=== PATIENT | female | born 1945 | race Caucasian/White ===

== ENCOUNTER → 2016-06-20 | Outpatient (CLI) | payer MEDICARE, OTHER ==
[~2016-06-20] MED LIST: ADVAIR 250-501 EACH INH; ALLEGRA PO; CHANTIX1 MG PO; COMBIVENT MDI IH; COUMADIN6 MG PO; DIFLUCAN PO; DULOXETINE HCL60 MG PO; DUONEB 2.5-0.5 M3 ML NEB; EFFEXOR XR PO; LEVAQUIN PO; LOTREL 5/20 MG1 CAP PO; LYRICA100 MG PO; MOBIC15 MG PO; NORCO1 TAB 10/3 PO; PHENERGAN25 M1 PO; PRAVASTATIN SOD10 MG PO; PREDNISONE PO; PREVACID PO; PROAIR HFA8.5 GM INH; SYMMETREL PO; SYNTHROID PO; TAMIFLU75 MG PO; VICODIN PO; VITAMIN D250000 UNIT PO; WALGREENS; ZETIA PO; ZYRTEC10 M1 PO
--- NOTE | ~2016-06-20 | CO ---
Unit #: [id number] #: [id number] Patient: ARTURO PARIKH [id number] [address] [address] [id number] O MR#: [id number] NAME: ARTURO PARIKH ROOM: Age: 70 Sex: F Admission Date: 06/20/2016 : 1945 Attending Physician: Destin Jenkins M.D. Primary Care Physician: Americo Baez M.D. Consultation Date: 06/20/2016 CONSULTATION REPORT REASON FOR CONSULTATION Preoperative medical evaluation prior to left total knee arthroplasty scheduled by Dr. Jenkins 07/18/2016. HISTORY OF PRESENT ILLNESS The patient is a 70-year-old female, who presents to preprocedural screening for the reasons indicated above. The patient reports left knee pain, but denies other complaints at the time of this interview. She denies chest, upper back, arm, neck, jaw pain or pressure. She clarifies that she does have a history of cervical spine fusion and does have neck pain from that in that regard. She denies dyspnea on exertion, paroxysmal nocturnal dyspnea, orthopnea, lightheadedness, dizziness, presyncope, syncope, and palpitations. She denies history of myocardial infarction, congestive heart failure, CVA, or TIA. She has a history of tobacco use, but is in a smoking cessation program and is on Chantix at this time. She has been evaluated by Dr. Jenkins and scheduled for the above-referenced procedure. PAST MEDICAL HISTORY 1. Osteoarthritis. 2. Type 2 diabetes mellitus, diet controlled. 3. COPD. 4. Asthma. 5. Hypertension. 6. Stress incontinence. 7. Depression. 8. GERD. 9. Hypothyroidism. 10. Seasonal allergic rhinitis. 11. Hyperlipidemia. 12. Anemia as a child. 13. Degenerative disk disease, status post C-spine fusion and L-spine fusion, status post epidural steroid injections. There is history of tingling in both hands. 14. Restless legs syndrome. 15. History of tobacco use. PAST SURGICAL HISTORY 1. Hysterectomy. 2. Appendectomy. 3. Cholecystectomy. 4. Cervical spine fusion x2. 5. Lumbar fusion. 6. Left wrist surgery. Unit #: [id number] #: [id number] Patient: ARTURO PARIKH. Left knee arthroscopy. Please note, the patient denies a personal and family history of complications to anesthesia. ALLERGIES Tetracyclines, tetanus, and diphtheria toxoid. We will need to clarify reactions. CURRENT MEDICATIONS Lotrel 5/20 mg capsule one p.o. b.i.d., Synthroid 100 mcg p.o. daily, Mobic 15 mg p.o. daily, Zetia 10 mg p.o. daily, Chantix 1 mg p.o. daily, vitamin D2 of 50,000 units p.o. on Monday, pravastatin sodium 10 mg p.o. at bedtime, Advair Diskus 250/50 one puff inhaled b.i.d., Cymbalta 60 mg p.o. daily, ProAir HFA 2 puffs inhaled q.4 hours p.r.n. shortness of air. SOCIAL HISTORY Tobacco use, 3 cigarettes a day for 48 years. Rarely consumes EtOH and denies illicit drug use. FAMILY HISTORY Per review of Dr. Jenkins's office note and confirmation with the patient. Mother with hypertension, hyperlipidemia, coronary artery disease with myocardial infarction. Father with diabetes, hypertension, high cholesterol, and myocardial infarction. REVIEW OF SYSTEMS A 10-point review of systems is conducted and negative except as indicated under history of present illness above. PHYSICAL EXAMINATION GENERAL: A 70-year-old female, sitting in wheelchair. Awake, alert, oriented, in no acute distress. VITAL SIGNS: Temperature 97.5, heart rate 72, respiratory rate 20, blood pressure 120/68, oxygen saturation 100% on room air. HEENT: Atraumatic, normocephalic. Sclerae anicteric. No discharge from eyes, ears, or nares. LYMPH: No preauricular, postauricular, tonsillar, submental, anterior, posterior cervical adenopathy. ENDOCRINE: No thyromegaly, thyroid nodules, or tenderness. RESPIRATORY: Clear to auscultation in all munoz bilaterally without wheezes, rhonchi, or rales. CARDIOVASCULAR: S1, S2. Regular rate and rhythm without murmur or rub. GI: Bowel sounds are positive x4. Soft, nontender, nondistended. EXTREMITIES: No edema, cyanosis, or clubbing. MUSCULOSKELETAL: Strength 5/5 in all extremities bilaterally with flexion and extension without atrophy or tenderness. NEUROLOGIC: Cranial nerves II through XII grossly intact. Alert and oriented x3. Speech clear. Handgrasps are strong and equal bilaterally DIAGNOSTIC STUDIES LABORATORY RESULTS: Hemoglobin A1c 5.8. WBC 8.3, hemoglobin 13.2, hematocrit 39.7, platelet count 272,000. Sodium 139, potassium 3.5, chloride 102, CO2 of 31, glucose 69, BUN 14, creatinine 0.7, calcium 9.0, AST 14, ALT 8, alkaline phosphatase 122, bilirubin total 0.3, total protein 7.1, albumin 3.8. PT 10.0, INR 1.0. Urinalysis, negative with culture and sensitivity not indicated. MRSA nasal screen pending at this time. Unit #: [id number] #: [id number] Patient: ARTURO PARIKH IMAGING STUDIES: Two-view chest x-ray report pending at this time. CARDIOVASCULAR STUDIES: 12-lead EKG, normal sinus rhythm. Nonspecific ST and T-wave abnormality. Abnormal ECG. Confirmed report pending at this time. IMPRESSION The patient is a 70-year-old female, who presents to preprocedural screening for medical evaluation prior to left total knee arthroplasty. The patient's Herbert Revised Cardiac Risk Index is equal to 0.4%. This represents the patient's perioperative risk of cardiac , fatal myocardial infarction, cardiopulmonary arrest, arrhythmia, and/or pulmonary edema. This has been discussed in detail with the patient. She wishes to proceed with surgery as scheduled at this time. 1. Type 2 diabetes mellitus. Diet controlled. We will place on Accu-Cheks and low-dose sliding scale insulin protocol postoperatively along with CCD. 2. Chronic obstructive pulmonary disease. The patient does not use oxygen at home. We will order inhaled bronchodilators and titrate O2 to keep O2 sats greater than or equal to 92%. 3. Asthma, stable. 4. Hypertension. Continue current medications and adjust medications accordingly. 5. Stress incontinence. Monitor for urinary retention. 6. Depression, stable. 7. Gastroesophageal reflux disease. Continue proton pump inhibitor/H2 amber. 8. Hypothyroidism. TSH, free T4 within normal range at this time. Continue home dose of Synthroid. 9. Seasonal allergic rhinitis, controlled. Continue home medication. 10. Hyperlipidemia. 11. History of anemia. The patient's H and H are stable today. 12. Osteoarthritis. 13. Degenerative disk disease, status post cervical spine and lumbar spine fusions and epidural steroid injections, stable. 14. History of tingling in both hands. 15. Restless legs syndrome. 16. History of tobacco use. On smoking cessation program with Chantix. Thank you for allowing us to participate in care of this patient. We will gladly follow her for postop medical management pending order of Dr. Jenkins. Dictated by... Gladys Nguyen A.P.R.N. for Nael Bolanos/ewelina TD: 06/21/2016 07:11 JOB #: [id number] Unit #: [id number] #: [id number] Patient: ARTURO PARIKH CONSULTATION REPORT X Gladys Nguyen APRN X CONSULTATION REPORT
--- NOTE | ~2016-06-20 | CR63 ---
[facility] A Service of [facility] & [facility] RADIOLOGY TEXT RESULTS PATIENT: ARTURO PARIKH LOCATION: [facility] : [birth year] UNIT #: [id number] AGE: [address]: Destin Jenkins MD SEX: F ORDER DR: [id number] [facility] [address] [place], [place] [address] [id number] O MR#: [id number] Acc #: [id number] NAME: ARTURO PARIKH : 1945 SEX: F STUDY DATE/TIME: 06/20/2016 12:58 UNIT: [facility] ROOM: STUDY DESCRIPTION: CR Chest 2 View Attending Physician: Destin Jenkins M.D. Referring Physician: Destin Jenkins M.D. Ordering Physician: Destin Jenkins M.D. Primary Care Physician: Americo Baez M.D. MEDICAL IMAGING REPORT This report is preliminary unless electronic signature is present EXAM Chest x-ray, 06/20 at 12:58. INDICATION Preoperative exam for left knee surgery. Former smoker. History of COPD and hypertension. FINDINGS PA and lateral views of the chest are compared with 12/23/2013. Cardiac and mediastinal contours are normal. No pneumothorax is seen. There is some mild scarring or atelectasis at the left base. Lungs are otherwise clear. No pneumothorax. IMPRESSION Mild scarring or atelectasis at the left lung base, otherwise no active disease. Dictated by... Rigo Silva Jr., M.D. THIS IS AN ELECTRONICALLY VERIFIED REPORT Rigo Silva Jr., M.D. at 06/21/2016 9:58 PM KEVIN/shannon TD: 06/21/2016 10:03 JOB #: [id number] MEDICAL IMAGING REPORT COPY
--- NOTE | ~2016-06-20 | EKG ---
PATIENT: ARTURO PARIKH UNIT #: [id number] Ventricular Rate: 67 BPM Atrial Rate: 67 BPM P-R Interval: 136 ms QRS Duration: 88 ms Q-T Interval: 414 ms QTC Calculation(Bezet): 437 ms P Smallwood: 65 degrees Calculated R Smallwood: 64 degrees Calculated T Smallwood: 47 degrees Diagnosis Line: Normal sinus rhythm Diagnosis Line: Nonspecific ST and T wave abnormality Diagnosis Line: Abnormal ECG Diagnosis Line: When compared with ECG of 17-JAN-2009 13:26, Diagnosis Line: No significant change was found Diagnosis Line: Confirmed by KALEB RODRIGUEZ MD ([id number]) on Diagnosis Line: 06/21/2016 4:09:43 PM INTERPRETING MD: MICHAEL STEINBERG
[2016-06-20 12:00] LABS: HEMATOCRIT 39.7 % (35.0-45.0); HEMOGLOBIN 13.2 gm/dL (12.0-16.0); MEAN CELL VOLUME 86.6 FL (83-96); MEAN CORPUSCULAR HEMOGLOBIN 28.8 PG (28-34); MEAN CORPUSCULAR HGB CONC 33.3 g/dL (30-36); MEAN PLATELET VOLUME 7.9 FL (6.5-11.5); RED BLOOD COUNT 4.58 X10e (3.90-5.30); RED CELL DISTRIBUTION WIDTH 13.8 % (11.0-15.5); WHITE BLOOD COUNT 8.3 X10e3 (4.0-10.5)
[2016-06-20 12:15] LABS: URINE APPEARANCE CLEAR; URINE BILIRUBIN NEG (NEG); URINE BLOOD TRACE (NEG); URINE COLOR YELLOW; URINE GLUCOSE NEG (NEG); URINE KETONE NEG (NEG); URINE LEUKOCYTE ESTERASE NEG (NEG); URINE NITRATE NEG (NEG); URINE PROTEIN NEG (NEG); URINE SPECIFIC GRAVITY 1.012 (1.003-1.035); URINE UROBILINOGEN 0.2 MG/DL (NEG)
[2016-06-20 12:17] LABS: URBCS1 AUWI 0-2 /[HPF] (0-2); URINE BACTERIA AUWI NEG (NEGATIVE); URINE SQUAMOUS EPITHELIAL CELL NONE SEEN /[HPF]; UWBCS1 AUWI 0-2 (0-5)
[2016-06-20 12:22] LABS: CULTURE INDICATED? NO; URINE SOURCE CLEAN CATCH
[2016-06-20 12:49] LABS: ALBUMIN SERUM 3.8 g/dL (3.5-5.0); ALKALINE PHOSPHATASE 122 U/L (32-92); ALT (SGPT) 8 U/L (10-40); AST (SGOT) 14 U/L (10-42); BILIRUBIN,TOTAL 0.3 mg/dL (0.2-2.0); BLOOD UREA NITROGEN 14 mg/dL (9-23); CARBON DIOXIDE 31 mmol/L (22-31); CHLORIDE 102 mmol/L (100-111); CREATININE SERUM 0.7 mg/dL (0.6-1.4); GLOM FILT RATE Estimated ABOVE60 mL/min (>60); GLUCOSE FASTING 69 mg/dL (70-110); POTASSIUM 3.5 mmol/L (3.5-5.1); PROTEIN TOTAL SERUM 7.1 g/dL (6.0-8.3); SODIUM 139 mmol/L (135-145)
[2016-06-20 14:00] LABS: THYROID STIMULATING HORMONE 0.91 uIU/ml (0.34-5.60)
[2016-06-20 14:07] LABS: FREE THYROXIN (T4) 1.13 ng/dL (0.58-1.64)
== END | disposition home or self-care (01) ==
LOC: CAMB 11:13
PROVIDERS: Orthopaedic Surgery
DX: Z01.818 Encounter for other preprocedural examination (principal); M17.12 Unilateral primary osteoarthritis, left knee; R91.8 Other nonspecific abnormal finding of lung field
CPT/HCPCS: 36415; 71020; 80053; 81003; 83036; 84439; 84443; 85027; 85610; 86850; 86900; 86901; 87070; 93005

== ENCOUNTER 2016-07-04 07:11 | Inpatient (IN) | payer MEDICARE, OTHER ==
--- NOTE | ~2016-07-04 | OR ---
Unit #: [id number] #: [id number] Patient: ARTURO PARIKH [id number] [address] [place], [place] [address] [id number] I MR#: [id number] NAME: ARTURO PARIKH ROOM: 453 Date of Procedure: 07/04/2016 Admission Date: 07/04/2016 Surgeon: Destin Jenkins M.D. : 1945 Attending Physician: Destin Jenkins M.D. Referring Physician: Destin Jenkins M.D. Primary Care Physician: Americo Baez M.D. OPERATIVE REPORT PREOPERATIVE DIAGNOSIS Primary localized osteoarthritis of the left knee. POSTOPERATIVE DIAGNOSIS Primary localized osteoarthritis of the left knee. PROCEDURE PERFORMED Left total knee. ASSISTANTS Enrique and Stan. ANESTHESIA Adductor canal block plus general. ESTIMATED BLOOD LOSS 100 mL. INDICATIONS FOR PROCEDURE This is a 70-year-old with severe pain in her left knee. She has had pain for years. The pain limits her walking or standing and she has difficulty bathing and sleeping. Because of her pain, she has elected to proceed with knee replacement surgery. She has tried injections and anti-inflammatories with no relief of her discomfort and her x-rays show that she has [id number] with subchondral sclerosis and periarticular osteophytes. DESCRIPTION OF PROCEDURE The patient was brought to the operating room, given an adductor canal block and 1 g of Kefzol. The Kefzol will be continued postop, but discontinued within 23 hours the start time of surgery. She was brought back to the operating room and given a general anesthetic. Tourniquet placed around the left leg. The left leg was prepped and draped in a sterile fashion. Tourniquet inflated to 250. A straight anterior skin incision was made. The subcutaneous dissected away and a medial arthrotomy was performed. Patella was slid to the side. Osteophytes removed from the femur. The intramedullary guide was used and a 5-degree valgus cut was made on the distal femur. The femur was sized and found to be a size 3. The anterior-posterior cutting block was applied. Rotation was checked in the knee. Anterior and posterior cuts were made along with the chamfer cuts. Proximal tibial cut was made using a 0-degree cutting block. It was sized at a 3 as well. Any posterior condylar osteophytes Unit #: [id number] #: [id number] Patient: ARTURO PARIKH were removed. The posterior capsule was injected with ropivacaine as was the periosteum. Trial femur was applied. The drill holes were made for lugs on the femoral component. The trial tibia was applied with an 8 insert. The knee came to full extension and good stability in extension and flexion. Rotation of the tibia was marked. The external alignment guide showed appropriate alignment of the limb. The patella grasped with 2 towel clips, measured 23 mm thick, was cut smooth at 14 and a 38 patella was the appropriate size. Three drill holes were made. Trial patella applied and it tracked properly. We then removed all the trials. The cement was mixed. The drill and punch were used to prepare the tibia. The knee was irrigated and dried and then all 3 components were cemented simultaneously. Once again, it was a size 3 femur, size 3 tibia, all poly 8 mm thick, and a 38 patella from the [employer] knee system. After the cement had hardened, the tourniquet was released. The rest of the ropivacaine mixture was injected. The knee was irrigated with Betadine and then bacitracin and then closed using 0 Ethibond in the arthrotomy, 0 and 2-0 Vicryl in the subcutaneous, and veronika in the skin. Sterile dressing applied and the patient's general anesthetic was reversed. surgical dental assistant, Sukhwinder Nunez was present throughout the entire case. Dictated by... Nael Phillips/ewelina TD: 07/05/2016 01:43 JOB #: [id number] OPERATIVE REPORT Page 1 of 1 X Destin Jenkins MD PROCEDURE OPERATIVE NOTE
[~2016-07-04 07:11] MED LIST changes: -COUMADIN6 MG PO; -NORCO1 TAB 10/3 PO; -ZYRTEC10 M1 PO
[2016-07-04 07:49] LABS: INR 0.9; PROTHROMBIN TIME (PATIENT) 9.7 SECONDS (9.6-11.5)
[2016-07-04] MEDS ORDERED: ZYRTEC10 M1 PO (17:30)
[2016-07-05 04:29] LABS: HEMATOCRIT 32.6 % (35.0-45.0); HEMOGLOBIN 10.9 gm/dL (12.0-16.0); MEAN CELL VOLUME 87.4 FL (83-96); MEAN CORPUSCULAR HEMOGLOBIN 29.2 PG (28-34); MEAN CORPUSCULAR HGB CONC 33.4 g/dL (30-36); MEAN PLATELET VOLUME 8.2 FL (6.5-11.5); RED BLOOD COUNT 3.73 X10e (3.90-5.30); RED CELL DISTRIBUTION WIDTH 13.7 % (11.0-15.5); WHITE BLOOD COUNT 12.1 X10e3 (4.0-10.5)
[2016-07-05 04:45] LABS: INR 1.4
[2016-07-05 04:47] LABS: PROTHROMBIN TIME (PATIENT) 15.2 SECONDS (9.6-11.5)
[2016-07-05 05:00] LABS: ALBUMIN SERUM 3.1 g/dL (3.5-5.0); ALKALINE PHOSPHATASE 107 U/L (32-92); ALT (SGPT) 25 U/L (10-40); AST (SGOT) 36 U/L (10-42); BILIRUBIN,TOTAL 0.6 mg/dL (0.2-2.0); BLOOD UREA NITROGEN 17 mg/dL (9-23); BUN/CREATININE RATIO 18.88; CALCIUM SERUM 8.6 mg/dL (8.4-10.2); CARBON DIOXIDE 29 mmol/L (22-31); CHLORIDE 99 mmol/L (100-111); CREATININE SERUM 0.9 mg/dL (0.6-1.4); GLOM FILT RATE Estimated ABOVE60 mL/min (>60); GLUCOSE FASTING 110 mg/dL (70-110); POTASSIUM 4.5 mmol/L (3.5-5.1); PROTEIN TOTAL SERUM 5.8 g/dL (6.0-8.3); SODIUM 136 mmol/L (135-145)
[2016-07-05] MEDS ORDERED: NORCO1 TAB 10/3 PO (14:31)
[2016-07-05] MEDS ORDERED: COUMADIN6 MG PO (14:34)
== END 2016-07-05 16:45 | disposition home health service (06) | DRG 470 ==
LOC: CSUR 07:11 → CPACUOF 08:20 → C4B 16:12
PROVIDERS: Internal Medicine; Orthopaedic Surgery
PROC: 0SRD0J9 Replacement of Left Knee Joint with Synthetic Substitute, Cemented, Open Approach (ICD-10-PCS; principal; 2016-07-04 09:00)
DX: M17.12 Unilateral primary osteoarthritis, left knee (principal); J44.9 Chronic obstructive pulmonary disease, unspecified; E11.9 Type 2 diabetes mellitus without complications; K21.9 Gastro-esophageal reflux disease without esophagitis; E03.9 Hypothyroidism, unspecified; Z90.710 Acquired absence of both cervix and uterus; G25.81 Restless legs syndrome; Z90.49 Acquired absence of other specified parts of digestive tract; Z82.49 Family history of ischemic heart disease and other diseases of the circulatory system; Z83.3 Family history of diabetes mellitus; F17.210 Nicotine dependence, cigarettes, uncomplicated; N39.3 Stress incontinence (female) (male); J45.909 Unspecified asthma, uncomplicated; R11.0 Nausea
CPT/HCPCS: 80053; 82947; 85027; 85610; 94640; 94760; 97110; 97116; 97163; 97166; 97530; 97535; C1776; G8978-GP; G8979-GP; G8980-GP; G8987-GO; G8988-GO; G8989-GO; J0131; J0171; J0330; J0690; J0735; J1100; J1170; J1650; J1885; J2250; J2405; J2710; J2795; J3010

== ENCOUNTER → 2016-07-28 | Outpatient (CLI) | payer MEDICARE, OTHER ==
[~2016-07-28] MED LIST changes: +COUMADIN6 MG PO; +NORCO1 TAB 10/3 PO; +ZYRTEC10 M1 PO
[2016-07-28 14:06] LABS: INR 1.4; PROTHROMBIN TIME (PATIENT) 14.5 SECONDS (9.6-11.5)
== END | disposition home or self-care (01) ==
LOC: CLAB 10:57
PROVIDERS: Orthopaedic Surgery
DX: Z51.81 Encounter for therapeutic drug level monitoring (principal); Z96.652 Presence of left artificial knee joint; Z79.01 Long term (current) use of anticoagulants
CPT/HCPCS: 36415; 85610

== ENCOUNTER → 2016-08-01 | Outpatient (CLI) | payer MEDICARE, OTHER ==
[2016-08-01 12:06] LABS: INR 2.1
[2016-08-01 12:07] LABS: PROTHROMBIN TIME (PATIENT) 22.2 SECONDS (9.6-11.5)
== END | disposition home or self-care (01) ==
LOC: CLAB 11:01
PROVIDERS: Orthopaedic Surgery
DX: Z51.81 Encounter for therapeutic drug level monitoring (principal); Z79.01 Long term (current) use of anticoagulants; Z96.652 Presence of left artificial knee joint
CPT/HCPCS: 36415; 85610

== ENCOUNTER → 2016-10-11 | Outpatient (CLI) | payer MEDICARE, OTHER ==
--- NOTE | ~2016-10-11 | MY29 ---
[facility] A Service of [facility] & [facility] RADIOLOGY TEXT RESULTS PATIENT: ARTURO PARIKH LOCATION: [facility] : 43 UNIT #: [id number] AGE: [address]: Adela Baez MD SEX: F ORDER DR: [id number] [facility] [address] [place], [place] [address] [id number] O MR#: [id number] Acc #: [id number] NAME: ARTURO PARIKH : 1945 SEX: F STUDY DATE/TIME: 10/11/2016 10:08 UNIT: [facility] ROOM: STUDY DESCRIPTION: MY SUSHIL SCREENING W/ CAD BILAT Attending Physician: Adela Baez M.D. Referring Physician: Adela Baez M.D. Ordering Physician: Adela Baez M.D. Primary Care Physician: Adela Baez M.D. MEDICAL IMAGING REPORT This report is preliminary unless electronic signature is present EXAM Digital screening mammogram, 10/11/[address], [facility]. HISTORY 71-year-old woman; no risk elevation. Annual screening. COMPARISON Comparison mammograms date to 11/01/2006, with most recent 09/03/2014. FINDINGS Digital imaging of each breast was completed, utilizing screening protocol. Review includes FDA-approved CAD device. Breast parenchyma is predominantly fatty replaced in each breast. Subareolar subcentimeter circumscribed nodules are noted bilaterally. These have benign characteristics. I see no suspicious mass characteristics and no suspicious microcalcifications or architectural distortion at this time. IMPRESSION Benign mammogram. Annual screening recommended. Patients over the age of 40 are entered into a reminder system with target due date for the next mammogram. A result letter will also be sent to the patient. BIRADS: 2 Benign finding. Dictated by... Emmanuel Menard M.D. THIS IS AN ELECTRONICALLY VERIFIED REPORT [facility] A Service of [facility] & [facility] RADIOLOGY TEXT RESULTS PATIENT: ARTURO PARIKH LOCATION: [facility] : 43 UNIT #: [id number] AGE: [address]: Adela Baez MD SEX: F ORDER DR: Emmanuel Menard M.D. at 10/11/2016 3:31 PM ANGELITO/randy TD: 10/11/2016 14:45 JOB #: [id number] MEDICAL IMAGING REPORT Page 1 of 1 COPY
== END | disposition home or self-care (01) ==
LOC: CWCC 09:36
DX: Z12.31 Encounter for screening mammogram for malignant neoplasm of breast (principal)
CPT/HCPCS: G0202